=== PATIENT | male | born 1965 | race Caucasian/White ===

== ENCOUNTER 2017-09-01 23:02 | Emergency (ER) | payer BC ==
[~2017-09-01] VITALS: Ht 170.2 cm; Wt 86.4 kg
[2017-09-01 23:13] VITALS: TEMP 96.3
[2017-09-02 02:15] VITALS: BP 129/84; PULSE 86
== END 2017-09-02 02:18 | disposition home or self-care (01) ==
LOC: COL.ER 23:02
DX: F10.129 Alcohol abuse with intoxication, unspecified (principal); R11.10 Vomiting, unspecified; Y90.8 Blood alcohol level of 240 mg/100 ml or more
CPT/HCPCS: J2405; J7030